=== PATIENT | female | born 1950 | race Two or more races ===

== ENCOUNTER 2023-01-28 08:55 | Emergency (ER) | payer OTHER ==
[~2023-01-28] VITALS: Ht 167.6 cm; Wt 70.0 kg
[2023-01-28 10:50] VITALS: BP 0/0
== END 2023-01-28 16:30 ==
LOC: ER 08:55 → EDBD 08:55 → ER 16:30
DX: I46.9 Cardiac arrest, cause unspecified (principal); J96.90 Respiratory failure, unspecified, unspecified whether with hypoxia or hypercapnia; I10 Essential (primary) hypertension
CPT/HCPCS: 31500; 36556; 92950; 99291